=== PATIENT | female | born 1955 | race Caucasian/White ===

== ENCOUNTER → 2018-03-26 | Outpatient (CLI) | payer BC, OTHER ==
[~2018-03-26] MED LIST: B CO1TAB14 PO; BLAC540C4 PO; CHOL5000 PO; CYCL5TAB PO; ESTR42.53 VG; MILK500C PO; OLIV250C PO; PROP60TA PO
[2018-03-26 09:27] LABS: MICROSCOPIC NOT IND
== END ==
LOC: STAR 08:07
PROVIDERS: ATTEND Urology
DX: Z01.818 Encounter for other preprocedural examination (principal)
CPT/HCPCS: 71046; 81003; 87086; 93005

== ENCOUNTER 2018-03-31 11:10 | Day surgery (SDC) | payer BC, OTHER ==
[~2018-03-31] VITALS: Ht 172.7 cm; Wt 79.0 kg
[2018-03-31] MEDS ORDERED: LACTATED RINGERS 1,000 ML IV SCH (11:28)
[2018-03-31] MEDS ORDERED: LIDOCAINE-MPF 1%, 2ML INFIL ONE (11:30)
[2018-03-31] MEDS ORDERED: MIDAZOLAM 1 MG/ML, 2ML ONE ×2 (12:50→12:54)
[2018-03-31] MEDS ORDERED: FENTANYL PF 250 MCG/5ML ONE (12:50)
[2018-03-31] MEDS ORDERED: ESTROGENS CONJUGATED VAG CRM 0.625MG/1G, 30GM ONE (12:51)
[2018-03-31] MEDS ORDERED: AMPICILLIN 1 GM ONE (12:51)
[2018-03-31] MEDS ORDERED: LIDOCAINE/PF 1%, 30ML ONE (12:52)
[2018-03-31] MEDS ORDERED: GENTAMICIN 80 MG/2 ML ONE (12:52)
[2018-03-31] MEDS ORDERED: THROMBIN 5,000 UNIT VIAL TP ONE ×2 (12:52→14:34)
[2018-03-31] MEDS ORDERED: NEOMY/POLYMYXIN B GU IRR. 1 ML IRRIG ONE (12:53)
[2018-03-31] MEDS ORDERED: EPINEPHRINE 1 MG/ML, 1ML ONE (12:53)
[2018-03-31] MEDS ORDERED: BUPIVACAINE 0.25% ONE (12:54)
[2018-03-31] MEDS ORDERED: DEXAMETHASONE 4 MG/ML, 1ML ONE (13:14)
[2018-03-31] MEDS ORDERED: ROCURONIUM 10MG/ML,5ML ONE (13:14)
[2018-03-31] MEDS ORDERED: PROPOFOL 10 MG/ML, 20ML ONE (13:14)
[2018-03-31] MEDS ORDERED: PIPERACILLIN/TAZO 3.375GM/50ML ONE (13:14)
[2018-03-31] MEDS ORDERED: ONDANSETRON 2MG/ML, 2ML ONE (13:14)
[2018-03-31] MEDS ORDERED: PHENYLEPHRINE 10 MG/ML ONE (13:14)
[2018-03-31] MEDS ORDERED: SUCCINYLCHOLINE 20 MG/ML, 10ML ONE (13:14)
[2018-03-31] MEDS ORDERED: ONDANSETRON ODT 8 MG PO PRN (14:00)
[2018-03-31] MEDS ORDERED: PROMETHAZINE 12.5 MG SUPP PR PRN (14:00)
[2018-03-31] MEDS ORDERED: ALBUTEROL SULFATE 2.5 MG/3 ML NPPB PRN (14:00)
[2018-03-31] MEDS ORDERED: OXYcodone 5 MG/5 ML ORAL.SOL UDC PO PRN (14:00)
[2018-03-31] MEDS ORDERED: FENTANYL PF 100 MCG/2ML IV PRN (14:00)
[2018-03-31] MEDS ORDERED: MORPHINE SULFATE 4 MG/ML, 1ML IVPush PRN (14:00)
[2018-03-31] MEDS ORDERED: hydrALAzine 20 MG/ML, 1ML IV PRN (14:00)
[2018-03-31] MEDS ORDERED: MIDAZOLAM 1 MG/ML, 2ML IV PRN (14:00)
[2018-03-31] MEDS ORDERED: ACETAMINOPHEN 325 MG TABLET PO PRN (14:00)
[2018-03-31] MEDS ORDERED: LABETALOL 5MG/ML, 20ML IV PRN (14:00)
[2018-03-31] MEDS ORDERED: PROMETHAZINE 25 MG/ML, 1ML IV PRN (14:00)
[2018-03-31] MEDS ORDERED: LIDOCAINE 1%-EPI 1:100K, 30ML INFIL ONE (14:06)
[2018-03-31] MEDS ORDERED: EPINEPHRINE 1 MG/ML, 1ML INFIL ONE (14:15)
[2018-03-31] MEDS ORDERED: ESTROGENS CONJUGATED VAG CRM 0.625MG/1G, 30GM VG ONE (14:34)
[2018-03-31] MEDS ORDERED: MEPERIDINE/PF 50 MG/ML ONE (15:14)
[2018-03-31] MEDS: MEPERIDINE/PF 25MG/0.5ML IVPush PRN ×2 (15:15→15:30)
== END 2018-03-31 17:55 ==
LOC: OUT 11:10
PROVIDERS: ATTEND Urology
DX: N81.4 Uterovaginal prolapse, unspecified (principal); F41.9 Anxiety disorder, unspecified; Z88.5 Allergy status to narcotic agent; Z87.39 Personal history of other diseases of the musculoskeletal system and connective tissue; Z86.19 Personal history of other infectious and parasitic diseases
CPT/HCPCS: 57240; C1781; J0171; J0330; J1100; J2175; J2250; J2370; J2405; J2543; J2704; J3010; J3490; J7120; J0290; J1580

== ENCOUNTER 2018-07-12 13:48 | Emergency (ER) | payer OTHER ==
[~2018-07-12] VITALS: Ht 170.2 cm; Wt 75.0 kg
[2018-07-12 16:41] VITALS: BP 128/74
== END 2018-07-12 16:46 | disposition home or self-care (01) ==
LOC: ED 15:03
DX: S92.335A Nondisplaced fracture of third metatarsal bone, left foot, initial encounter for closed fracture (principal); S92.345A Nondisplaced fracture of fourth metatarsal bone, left foot, initial encounter for closed fracture; S05.11XA Contusion of eyeball and orbital tissues, right eye, initial encounter; W10.9XXA Fall (on) (from) unspecified stairs and steps, initial encounter; Y93.89 Activity, other specified; Y99.8 Other external cause status; Y92.89 Other specified places as the place of occurrence of the external cause
CPT/HCPCS: 29515; 70450; 70486; 99284

== ENCOUNTER 2018-11-21 09:16 | Emergency (ER) | payer OTHER ==
[~2018-11-21] VITALS: Ht 170.2 cm; Wt 80.0 kg
--- NOTE | 2018-11-21 09:20 | NUR ---
63 YR OLD FEMALE ARRIVED VIA EMS, WAS WALKING SLIPPED, FELL, PAIN TO LEFT FOOT. PT ARRIVES WITH AIR BOOT IN PLACE. 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
[2018-11-21] MEDS ORDERED: FENTANYL PF 100 MCG/2ML IVPush PRN (09:30)
[2018-11-21] MEDS ORDERED: ONDANSETRON 2MG/ML, 2ML IVPush ONE (09:30)
[2018-11-21] MEDS ORDERED: SODIUM CHLORIDE FLUSH 10ML SYR IVF ONE (09:30)
[2018-11-21] MEDS ORDERED: FENTANYL PF 100 MCG/2ML ONE (10:15)
[2018-11-21] MEDS ORDERED: ONDANSETRON 2MG/ML, 2ML ONE (10:15)
--- NOTE | 2018-11-21 10:24 | NUR ---
TECHS AT BEDSIDE PREPARING TO SPLINT LEFT LOWER EXTREMITY. PT GIVEN FENTYNL PER ORDERS.
[2018-11-21 11:33] VITALS: BP 175/91
== END 2018-11-21 12:28 | disposition home or self-care (01) ==
LOC: ED 12:22
DX: S82.245A Nondisplaced spiral fracture of shaft of left tibia, initial encounter for closed fracture (principal); S82.435A Nondisplaced oblique fracture of shaft of left fibula, initial encounter for closed fracture; W01.0XXA Fall on same level from slipping, tripping and stumbling without subsequent striking against object, initial encounter; Y93.89 Activity, other specified; Y92.410 Unspecified street and highway as the place of occurrence of the external cause; Y99.8 Other external cause status
CPT/HCPCS: 29515; 73590; 73610; 96374; 96375; 99283; J2405; J3010

== ENCOUNTER 2018-11-26 12:02 | Observation (INO) | payer OTHER ==
[~2018-11-26] VITALS: Ht 170.2 cm; Wt 77.0 kg
[2018-11-26] MEDS ORDERED: LACTATED RINGERS 1,000 ML IV SCH (12:54)
[2018-11-26 13:00] VITALS: BP 148/81
[2018-11-26] MEDS ORDERED: HYDR-3622 PO (13:07)
[2018-11-26] MEDS ORDERED: BUPIVACAINE/PF-EPI 0.5% 1:200K ONE (13:13)
[2018-11-26] MEDS ORDERED: MIDAZOLAM 1 MG/ML, 2ML ONE (13:55)
[2018-11-26] MEDS ORDERED: CEFAZOLIN 1,000 MG ONE ×2 (13:56)
[2018-11-26] MEDS ORDERED: ONDANSETRON 2MG/ML, 2ML ONE (13:56)
[2018-11-26] MEDS ORDERED: PROPOFOL 10 MG/ML, 20ML ONE (13:56)
[2018-11-26] MEDS ORDERED: DEXAMETHASONE 4 MG/ML, 1ML ONE ×2 (13:56)
[2018-11-26] MEDS ORDERED: FENTANYL PF 250 MCG/5ML ONE (13:56)
[2018-11-26] MEDS ORDERED: LABETALOL 5MG/ML, 20ML IV PRN (14:30)
[2018-11-26] MEDS ORDERED: PROMETHAZINE 25 MG/ML, 1ML IV PRN (14:30)
[2018-11-26] MEDS ORDERED: HYDROcodone/APAP 7.5-325MG/15ML UDC PO PRN (14:30)
[2018-11-26] MEDS ORDERED: ONDANSETRON ODT 8 MG PO PRN (14:30)
[2018-11-26] MEDS ORDERED: HYDROmorphone 2 MG/ML, 1ML IVPush PRN (14:30)
[2018-11-26] MEDS ORDERED: MEPERIDINE/PF 25MG/0.5ML IVPush PRN (14:30)
[2018-11-26] MEDS ORDERED: ACETAMINOPHEN 325 MG TABLET PO PRN (14:30)
[2018-11-26] MEDS ORDERED: PROMETHAZINE 12.5 MG SUPP PR PRN (14:30)
[2018-11-26] MEDS ORDERED: PROMETHAZINE 25 MG/ML, 1ML IM PRN ×2 (14:30)
[2018-11-26] MEDS ORDERED: hydrALAzine 20 MG/ML, 1ML IV PRN (14:30)
[2018-11-26] MEDS ORDERED: PROMETHAZINE 25 MG SUPP PR PRN (14:30)
[2018-11-26] MEDS ORDERED: ONDANSETRON 2MG/ML, 2ML IV PRN (14:30)
[2018-11-26] MEDS ORDERED: HYDROcodone/APAP 7.5-325MG/15ML UDC ONE (15:45)
[2018-11-26] MEDS ORDERED: FENTANYL PF 100 MCG/2ML ONE (15:45)
[2018-11-26] MEDS: FENTANYL PF 100 MCG/2ML IV PRN ×2 (15:48→15:53)
[2018-11-26] MEDS ORDERED: LABETALOL 5 MG/ML SYRINGE IV PRN (16:15)
[2018-11-26 19:54] VITALS: BP 120/68
== END 2018-11-26 20:35 | disposition home or self-care (01) ==
LOC: OUT 12:02 → ORIP 18:55 → 4NOR 19:13
PROVIDERS: ADMIT Orthopaedic Surgery; ATTEND Orthopaedic Surgery
DX: S82.302A Unspecified fracture of lower end of left tibia, initial encounter for closed fracture (principal); X58.XXXA Exposure to other specified factors, initial encounter; Y93.89 Activity, other specified; Y92.89 Other specified places as the place of occurrence of the external cause; Y99.8 Other external cause status
CPT/HCPCS: 27827; 73600; 76000; 93005; G0378; J0690; J1100; J2250; J2405; J2704; J3010; J7120; C1713